=== PATIENT | male | born 1995 | race African-American/Black ===

== ENCOUNTER 2022-02-06 20:31 | Emergency (ER) | payer OTHER ==
[2022-02-06] MEDS ORDERED: Ibuprofen 400 MG Tab PO ONE (21:51)
[2022-02-06] MEDS ORDERED: Acetaminophen 325 MG Tab PO ONE (21:52)
== END 2022-02-06 23:55 | disposition home or self-care (01) ==
LOC: MW.ED 20:31
DX: M54.6 Pain in thoracic spine (principal); M25.522 Pain in left elbow; V89.2XXA Person injured in unspecified motor-vehicle accident, traffic, initial encounter; Y92.410 Unspecified street and highway as the place of occurrence of the external cause
CPT/HCPCS: 72070; 72100; 73070; 99284; A9270; 99283